=== PATIENT | female | born 1965 | race Caucasian/White ===

== ENCOUNTER 2022-02-17 14:34 | Emergency (ER) | payer BC, OTHER ==
[~2022-02-17 14:34] MED LIST: ALBU8.5H8 INH
[2022-02-17 15:11] VITALS: BP_SYST 100
--- NOTE | 2022-02-17 15:13 | NUR ---
Pt states that she "is here to follow-up with Dr. Carranza."
--- NOTE | 2022-02-17 15:20 | NUR ---
Patient's family states she will follw up on another day. Patient left without being seen.
== END 2022-02-17 15:20 | disposition left against medical advice (07) ==
LOC: SED 14:34
DX: Z48.00 Encounter for change or removal of nonsurgical wound dressing (principal); Z53.21 Procedure and treatment not carried out due to patient leaving prior to being seen by health care provider